=== PATIENT | male | born 1970 | race Caucasian/White ===

== ENCOUNTER 2016-06-30 19:33 | Emergency (ER) | payer OTHER ==
[~2016-06-30] VITALS: Ht 182.9 cm; Wt 93.7 kg
[2016-06-30 20:01] LABS: HEMATOCRIT 43.1 % (38.0-50.0); MCH 29.5 PG (29.0-34.0); MCHC 35.5 G/DL (30.0-36.0); MCV 83.2 FL (86-99); PLATELET COUNT 345 K/uL (156-360); RBC DIS.WIDTH-CV 13.8 % (11.8-14.6); RBC DIS.WIDTH-SD 41.1 % (39-53); RED BLOOD COUNT 5.18 M/uL (4.00-5.50); WHITE BLOOD COUNT 11.2 K/uL (4.1-10.2)
[2016-06-30 20:10] LABS: CHLORIDE 106 mEq/L (99-109); POTASSIUM 3.4 mEq/L (3.7-5.4); SODIUM 141 mEq/L (136-147)
[2016-06-30 20:12] LABS: GLUCOSE 108 mg/dL (70-99)
[2016-06-30 20:13] LABS: ANION GAP 10 MEQ/L (2-14)
[2016-06-30 20:15] LABS: GFR ESTIMATE (CALCULATED) > 59 mL/min/
[2016-06-30 20:16] LABS: UREA NITROGEN (BUN) 22 mg/dL (9-23)
[2016-06-30 20:22] LABS: TROP-I INTERPRETATION NEGATIVE; TROPONIN-I < 0.01 ng/mL (0.0-0.30)
[2016-06-30 22:58] VITALS: BP 108/78
== END 2016-06-30 23:01 | disposition left against medical advice (07) ==
LOC: EME 19:33
DX: R07.9 Chest pain, unspecified (principal); Z95.2 Presence of prosthetic heart valve
CPT/HCPCS: 71020; 80048; 84484; 85027; 93005; 99281; 99284